=== PATIENT | female | born 1995 | race Caucasian/White ===

== ENCOUNTER 2023-08-10 20:02 | Emergency (ER) | payer SELFPAY ==
[~2023-08-10] VITALS: Ht 152.4 cm; Wt 61.2 kg
[2023-08-10 20:11] VITALS: TEMP 98.1; O2SAT 99
[2023-08-10 20:58] LABS: CLARITY URINE CLOUDY (CLEAR); COLOR URINE ORANGE (YELLOW); GLUCOSE URINE NEGATIVE (NEGATIVE); KETONES URINE 1+ (NEGATIVE); LEUKOCYTE ESTERASE URINE 1+ (NEGATIVE); NITRITE URINE NEGATIVE (NEGATIVE); OCCULT BLOOD URINE 3+ (NEGATIVE); PH URINE 5.5 (4.5-8.0); PROTEIN URINE 1+ (NEGATIVE); SPECIFIC GRAVITY URINE 1.025 (1.005-1.030)
[2023-08-10 21:04] LABS: BASOPHILS % 0.4 % (0.0-2.0); EOSINOPHILS % 0.6 % (0.0-5.0); HEMATOCRIT. 39.1 % (36.0-48.0); HEMOGLOBIN. 13.5 g/dL (12.0-16.0); LYMPHOCYTES % 18.7 % (20.0-50.0); MEAN CORPUSCULAR HEMOGLOBIN 30.7 pg (28.0-32.0); MEAN CORPUSCULAR HGB CONC 34.6 g/dL (31.0-37.0); MEAN CORPUSCULAR VOLUME 88.8 fL (81.0-99.0); MEAN PLATELET VOLUME 8.3 fl (7.4-10.4); MONOCYTES % 8.9 % (2.0-8.0); NEUTROPHILS % 71.4 % (40.0-76.0); PLATELET 270 x1000/uL (130-400); RED BLOOD CELL COUNT 4.41 mill/uL (4.2-5.4); RED CELL DISTRIBUTION WIDTH 12.5 % (11.6-14.6)
[2023-08-10 21:18] LABS: HCG SCREEN NEGATIVE
[2023-08-10 21:21] LABS: ALANINE AMINOTRANSFERASE 19 IU/L (10-49); ALBUMIN 4.7 g/dL (3.2-4.8); ASPARTATE AMINOTRANSFERASE 19 IU/L (<34); BILIRUBIN TOTAL 0.5 mg/dL (0.1-1.0); CALCIUM 9.3 mg/dL (8.7-10.4); CARBON DIOXIDE 21 mEq/L (21-32); CHLORIDE 105 mEq/L (98-107); CREATININE 0.6 mg/dL (0.6-1.0); GLUCOSE 92 mg/dL (70-105); POTASSIUM 3.4 mEq/L (3.5-5.1); PROTEIN TOTAL 7.4 g/dL (6.0-8.3); SODIUM 137 mEq/L (136-145); UREA NITROGEN BLOOD 7 mg/dL (9-23)
[2023-08-10 21:21] LABS: RBC URINE 50-100 /hpf (0-2)
[2023-08-10 21:28] LABS: BACTERIA URINE 2+; SQUAMOUS EPITHELIAL CELL URINE 2+ /lpf (RARE/1+)
[2023-08-11] MEDS ORDERED: DOXY100C5 MT (02:53)
[2023-08-11] MEDS ORDERED: METR-167 MT (02:53)
[2023-08-11] MEDS ORDERED: IBUP-2028 MT (02:55)
[2023-08-11] MEDS ORDERED: TUSSL MT (02:55)
[2023-08-11 03:30] VITALS: BP 102/59; PULSE 86; RESP 16
[2023-08-11] MEDS: CEFTRIAXONE SODIUM 500MG VIAL IM ONE (03:51)
[2023-08-11] MEDS: LIDOCAINE HCL/PF 1% 10 MG/ML 5ML VIAL INFIL ONE (03:52)
[2023-08-13 04:10] LABS: CHLAMYDIA TRACHOMATIS NAA Negative (Negative); NEISSERIA GONORRHOEAE NAA Negative (Negative)
== END 2023-08-11 03:45 | disposition home or self-care (01) ==
LOC: ER 20:02
DX: N73.8 Other specified female pelvic inflammatory diseases (principal); J06.9 Acute upper respiratory infection, unspecified
CPT/HCPCS: 80053; 81003; 81025; 84703; 85025; 36415; 99285; 87491; 87591; 87210; 76830; 76856; J0696; J3490; Z7610 ×3